=== PATIENT | male | born 2000 | race African-American/Black ===

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

== ENCOUNTER 2020-12-02 16:28 | Emergency (ER) | payer OTHER ==
--- NOTE | 2020-12-02 18:09 | RAD ---
Exam:4 views left elbow HISTORY: Abscess. COMPARISON: None FINDINGS: Soft tissue swelling. No fracture, cortical irregularity or periosteal reaction. No obvious effusion. IMPRESSION: Soft tissue swelling due to focal cellulitis or abscess.
[2020-12-02] MEDS ORDERED: Ketamine 50 MG/ML (10ML VIAL) ONE (19:26)
[2020-12-02] MEDS ORDERED: Ondansetron PF 4 MG/2 ML Vial ONE (19:26)
== END 2020-12-02 20:24 | disposition home or self-care (01) ==
LOC: ERS 16:28
DX: L03.114 Cellulitis of left upper limb (principal); G40.909 Epilepsy, unspecified, not intractable, without status epilepticus; Z79.899 Other long term (current) drug therapy
CPT/HCPCS: 10060; 96374; 99152; J2405